=== PATIENT | male | born 1975 | race Caucasian/White ===

== ENCOUNTER 2021-06-15 20:13 | Day surgery (SDCO) | payer OTHER ==
[~2021-06-15] VITALS: Ht 188 cm; Wt 95.5 kg
[2021-06-15 22:33] LABS: BASOPHIL 0.1 % (0-2); EOSINOPHIL 2.1 % (0-5); HCT 36.9 % (42.0-52.0); HGB 12.4 g/dl (13.2-18.0); LYMPHOCYTE 20.4 % (15-48); MCH 30.8 pg (25.0-31.0); MCHC 33.6 g/dL (32.0-36.0); MCV 91.6 fL (78.0-100.0); MONOCYTE 7.9 % (0-12); MPV 10.1 fL (6.0-9.5); NEUTROPHIL 69.3 % (41-80); NRBC 0; PLT 179 K/uL (150-400); RBC 4.03 M/uL (4.70-6.00); RDW 12.5 % (11.5-14.0); WBC 8.7 K/uL (4.0-10.5)
[2021-06-15 23:00] LABS: LACTIC ACID 0.8 mmol/L (0.4-1.9)
[2021-06-15 23:05] LABS: BUN 28 mg/dL (7-18); CHLORIDE 103 mmol/L (98-107); CO2 (BICARBONATE) 28 mmol/L (21-32); CREATININE 0.94 mg/dL (0.67-1.17); GLUCOSE 104 mg/dL (74-106); POTASSIUM 3.3 mmol/L (3.5-5.1)
[2021-06-15 23:16] LABS: TOTAL PROTEIN 7.2 g/dL (6.4-8.2)
[2021-06-15 23:17] LABS: ALBUMIN 3.6 g/dL (3.4-5.0); GLOBULIN (CALCULATION) 3.6 g/dL
[2021-06-15 23:18] LABS: ALKALINE PHOSHATASE 71 U/L (46-116); AST 242 U/L (15-37); BILIRUBIN - TOTAL 0.8 mg/dL (0.2-1.0)
[2021-06-15 23:19] LABS: ALT 192 U/L (16-63); CPK 3933 U/L (39-308)
[2021-06-16 03:06] LABS: ECSTASY (MDMA) NEGATIVE (NEGATIVE); MARIJUANA (THC) POSITIVE (NEGATIVE); METHADONE NEGATIVE (NEGATIVE); OPIATES NEGATIVE (NEGATIVE)
[2021-06-16 03:07] LABS: AMPHETAMINES NEGATIVE (NEGATIVE); BARBITURATES NEGATIVE (NEGATIVE); OXYCODONE NEGATIVE (NEGATIVE)
[2021-06-16 06:11] LABS: BASOPHIL 0.2 % (0-2); EOSINOPHIL 2.3 % (0-5); HCT 34.5 % (42.0-52.0); HGB 11.4 g/dl (13.2-18.0); LYMPHOCYTE 31.2 % (15-48); MCH 30.9 pg (25.0-31.0); MCV 93.5 fL (78.0-100.0); MONOCYTE 7.2 % (0-12); NEUTROPHIL 58.7 % (41-80); NRBC 0; PLT 145 K/uL (150-400); RBC 3.69 M/uL (4.70-6.00); RDW 12.7 % (11.5-14.0); WBC 5.3 K/uL (4.0-10.5)
[2021-06-16 07:01] LABS: CREATININE 0.68 mg/dL (0.67-1.17); POTASSIUM 3.7 mmol/L (3.5-5.1)
[2021-06-16] MEDS ORDERED: COLACE100 MG PO (11:34)
[2021-06-16] MEDS ORDERED: DITROPAN5 MG PO (11:35)
[2021-06-16] MEDS ORDERED: PRILOSEC20 MG PO (11:36)
[2021-06-16] MEDS ORDERED: COZAAR100 MG PO (11:36)
[2021-06-16] MEDS ORDERED: SYNTHROID25 MCG PO (11:37)
[2021-06-16] MEDS ORDERED: VITAMIN D3 PO (11:39)
[2021-06-16] MEDS ORDERED: BUPRENORPHIN-N1 EACH PO (11:41)
[2021-06-16] MEDS ORDERED: PROAIR DIGIHAL90 MCG INH (11:45)
[2021-06-16] MEDS ORDERED: LYRICA25 MG PO (11:46)
[2021-06-16] MEDS ORDERED: CETIRIZINE HCL10 MG PO (11:46)
[2021-06-16] MEDS ORDERED: ELAVIL50 MG PO (11:47)
[2021-06-16] MEDS ORDERED: ATENOLOL25 MG PO (11:47)
[2021-06-16] MEDS ORDERED: SYMBICORT 80-10.2 GM INH (11:48)
[2021-06-16] MEDS ORDERED: SYMBICORT INH (11:50)
[2021-06-16] MEDS ORDERED: CLONAZEPAM2 MG PO (11:51)
[2021-06-16] MEDS ORDERED: ARTHRITIS PAIN650 M2 PO (11:52)
[2021-06-16] MEDS ORDERED: NICOTINE GUM PO (11:54)
[2021-06-16] MEDS ORDERED: VIIBRYD40 MG PO (11:57)
[2021-06-16] MEDS ORDERED: SODIUM FLUORIDE (11:57)
[2021-06-16] MEDS ORDERED: ATARAX25 MG PO (11:58)
[2021-06-17 04:26] LABS: BASOPHIL 0.2 % (0-2); EOSINOPHIL 1.9 % (0-5); HGB 10.8 g/dl (13.2-18.0); LYMPHOCYTE 35.8 % (15-48); MCH 31.1 pg (25.0-31.0); MCHC 32.7 g/dL (32.0-36.0); MCV 95.1 fL (78.0-100.0); MONOCYTE 7.1 % (0-12); MPV 10.1 fL (6.0-9.5); NEUTROPHIL 54.6 % (41-80); NRBC 0; PLT 131 K/uL (150-400); RBC 3.47 M/uL (4.70-6.00); WBC 4.6 K/uL (4.0-10.5)
[2021-06-17 04:46] LABS: BUN/CREAT RATIO (CALC) 13.9 RATIO; CREATININE 0.72 mg/dL (0.67-1.17); POTASSIUM 3.8 mmol/L (3.5-5.1)
[2021-06-17] MEDS ORDERED: BACLOFEN 10MG T10 MG PO (16:39)
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
--- NOTE | 2021-06-17 17:19 | NUR ---
TALKED TO PATIENT TO GO OVER DISCHARGE INSTRUTIONS AND TO INFORM HIM THAT HE CAN GO TO THE RETIREMENT. THAT A CAB CAN BE CALLED AT THIS TIME SO HE CAN GET TO THE RETIREMENT BEFOR 6PM. PT DECIDED AT THIS TIME THAT HE DOSN'T WANT TO GO TO THE RETIREMENT, AND THAT HE WOULD LIKE TO HAVE A NEW PAIR OF SHOES. PT HAS BOOTS IN HIS ROOM THAT HE CAME INTO THE HOSPITAL WITH.
== END 2021-06-17 18:32 | disposition home or self-care (01) ==
LOC: FER 20:13 → FMS 06-16 00:18
PROVIDERS: Emergency Medicine Emergency Medical Services; Internal Medicine; Nurse Practitioner; ADMIT Allergy & Immunology Allergy
DX: M62.82 Rhabdomyolysis (principal); E86.0 Dehydration; J44.9 Chronic obstructive pulmonary disease, unspecified; F15.10 Other stimulant abuse, uncomplicated; G93.41 Metabolic encephalopathy; G47.00 Insomnia, unspecified; M79.7 Fibromyalgia; Z79.899 Other long term (current) drug therapy; Z59.0 Homelessness; Z20.822 Contact with and (suspected) exposure to COVID-19
CPT/HCPCS: 36415; 70450; 71250; 72125; 73620; 80048; 80053; 80305; 82550; 83605; 84484; 85025; 87088; 94640; G0378; G0480; J1650; J3480; J7120; U0002